=== PATIENT | female | born 1950 | race Caucasian/White ===

== ENCOUNTER 2017-02-04 15:59 | Emergency (ER) | payer MEDICARE, OTHER ==
[~2017-02-04] VITALS: Ht 147.3 cm; Wt 53.0 kg
[~2017-02-04 15:59] MED LIST: NAPR-260 PO
[2017-02-04 16:04] VITALS: Ht 147.3 cm; Wt 53.0 kg
[2017-02-04] MEDS ORDERED: IBUPROFEN 200 MG TAB PO ONE (17:00)
[2017-02-04] MEDS ORDERED: LIDOCAINE 1% (MDV) 20 ML INJ SC ONE (17:00)
[2017-02-04] MEDS ORDERED: CEFTRIAXONE 1 GM INJ IM ONE (17:00)
[2017-02-04] MEDS ORDERED: CEPH-443 PO (18:30)
[2017-02-04] MEDS ORDERED: IBUP400T22 PO (18:30)
[2017-02-04] MEDS ORDERED: TRAM50TA2 PO (18:30)
--- NOTE | 2017-02-04 18:34 | ERD ---
ER Documentation Chief Complaint Date/Time DATE: 02/04/17 TIME: 18:32 Chief Complaint dental pain to left side of face causing swelling to face HPI 66-year-old female presents with some left facial swelling last 3 days. Denies fevers, difficulty swallowing, difficulty breathing. She has not seen a dentist yet. Denies any history of trauma. ROS All systems reviewed and are negative except as per history of present illness. Medications Home Meds Active Scripts Tramadol HCl (Tramadol HCl) 50 Mg Tablet, 50 MG PO Q4 Y for PAIN, #15 TAB Prov:MAYTE MANUEL MD 02/04/17 Ibuprofen* (Motrin*) 400 Mg Tab, 400 MG PO Q6, #20 TAB Prov:MAYTE MANEUL MD 02/04/17 Cephalexin* (Keflex*) 500 Mg Capsule, 500 MG PO QID for 10 Days, CAP Prov:MAYTE MANUEL MD 02/04/17 Naproxen* (Naprosyn*) 500 Mg Tablet, 500 MG PO BID Y for PAIN AND/OR INFLAMMATION, #30 TAB Prov:GARRY TREADWELL PA-C 11/07/15 Allergies Allergies: Coded Allergies: No Known Allergy (Unverified , 11/07/15) PMhx/Soc History of Surgery: Yes (PACEMAKER) Anesthesia Reaction: No Hx Neurological Disorder: No Hx Respiratory Disorders: No Hx Cardiac Disorders: Yes (HTN) Hx Psychiatric Problems: No Hx Miscellaneous Medical Probl: No Hx Alcohol Use: No Hx Substance Use: No Hx Tobacco Use: No Physical Exam Vitals Vital Signs Date Time Temp Pulse Resp B/P Pulse Ox O2 Delivery O2 Flow Rate FiO2 02/04/17 16:04 99.0 80 18 137/66 97 Physical Exam Const: []Alert, not ill-appearing Head: Atraumatic Eyes: Normal Conjunctiva ENT: Normal External Ears, Nose and Mouth.Some carious teeth left upper and lower molars. There is some swelling and redness of the maxillary area as well as mildly in the left mandible. There is no erythema, induration or proptosis Neck: Full range of motion..~ No meningismus. Resp: Clear to auscultation bilaterally Cardio: Regular rate and rhythm, no murmurs Abd: Soft, non tender, non distended. Normal bowel sounds Skin: No petechiae or rashes Back: No midline or flank tenderness Ext: No cyanosis, or edema Neur: Awake and alert Psych: Normal Mood and Affect Results 24 hrs Current Medications Medications (Trade) Dose Ordered Sig/Conrad Route PRN Reason Start Time Stop Time Status Last Admin Dose Admin Ibuprofen (Motrin) 400 mg ONCE ONCE PO 02/04/17 17:00 02/04/17 17:01 DC 02/04/17 17:09 Ceftriaxone Sodium (Rocephin) 1 gm ONCE ONCE IM 02/04/17 17:00 02/04/17 17:01 DC 02/04/17 17:09 Lidocaine (Xylocaine 1% (Mdv) 20 ml) 20 ml ONCE ONCE SC 02/04/17 17:00 02/04/17 17:01 DC 02/04/17 17:09 Procedures/MDM Patient presents with signs of dental abscess in the left upper lower molar with signs of mild facial cellulitis. CT facial bone shows carious molars in the area of pain and swelling without extension into the sinus is no evidence of fracture or additional complications. Is no evidence to suggest orbital cellulitis or airway obstruction or sepsis and the patient is not tachycardic or febrile. Patient was given Rocephin 1 1 g IM and ibuprofen for pain. Patient will be treated with Keflex and ibuprofen and tramadol at home and dental follow-up this week. She should return for new or worsening symptoms or with primary care doctor and dentist as directed. The patient was stable with no new complaints during the ER course. Clinically, there is no current evidence to suggest meningitis, sepsis, acute abdomen, pneumonia, acute coronary syndrome, pulmonary embolism, or any other emergent condition appearing to require further evaluation or hospitalization. The patient should certainly return for any new or worsening symptoms per the aftercare instructions. They should otherwise follow-up with her primary care doctor for reevaluation this week. Departure Diagnosis: Primary Impression: Dental abscess Condition: Stable Patient Instructions: Dental Abscess W/ Facial Cellulitis Referrals: [facility] ([facility] walk in clinic) Additional Instructions: Va al king doctor/ specialista para mas evaluacon en el proximo semana. posiblemente necesita autorizado de king doctor primario para specialista. Regresa para fiebre, o mas o nueva simptomas. MAYTE MANUEL MD Feb 04, 2017 18:34
--- NOTE | 2017-02-04 19:04 | RADRPT ---
PROCEDURE: CT Maxillofacial without. CLINICAL INDICATION: Facial pain, swelling. TECHNIQUE: The study was performed utilizing a multi-slice, multidetector CT scanner. Direct spira l 1 mm axial sections were obtained through the head without the use of intravenous contrast materia l. 1 or more of the following dose reduction techniques were utilized: Automated exposure control, adjustment of the mA and/or kV according to patient's size, iterative reconstruction technique. Co ирина and sagittal reformations were obtained. The images were reviewed on a PACS workstation. RADIATION DOSE: CTDIvol: 29.4 mGyDLP: 45.5 mGy-cm COMPARISON: No prior studies are available for comparison. FINDINGS: There is mild soft tissue swelling overlying the left levi mandible. There is a dental caries/absces s involving the left second mandibular molar (sagittal series image 57). No definite focal fluid col lection or evidence of subperiosteal abscess is seen. There is also mild soft tissue swelling in the left periorbital region. The maxilla, zygomatic arches and ethmoid bone intact. The nasal bone is intact. There are minimal inflammatory changes of the bilateral maxillary sinuses inferiorly as well as the ethmoid air cells . The nasal spine of the maxilla is intact. The visualized mandible is normal in appearance. Ther e is no evidence of facial bone fracture. The soft tissues are unremarkable. Limited visualization of the intracranial contents is normal in appearance. The nasopharynx and oropharynx are normal in appearance. IMPRESSION: 1. Prominent dental caries/abscess involving the left second mandibular molar without evidence of s ubperiosteal abscess formation. There is associated mild soft tissue swelling involving the left man dibular soft tissues. The above findings were discussed with Patient's physician Isaak Batres by telephone on 02/04/2017 6:15:09 PM. RPTAT: HGAS .Kelby Heredia MD, Date Time Electronically viewed and signed by .Kelby Heredia MD, on 02/04/2017 18:23 .S/
== END 2017-02-04 18:48 | disposition home or self-care (01) ==
LOC: FTE 15:59
DX: K04.7 Periapical abscess without sinus (principal); I10 Essential (primary) hypertension; Z95.0 Presence of cardiac pacemaker
CPT/HCPCS: 70486; 96372; 99285; J0696